=== PATIENT | male | born 1940 ===

== ENCOUNTER → 2024-01-02 | Outpatient (CLI) | payer BC, MEDICARE ==
[2024-01-02 17:43] LABS: INR 1.3 (<1.2); Partial Thromboplastin Time 36.2 sec (22.0-30.0); Prothrombin Time 13.7 sec (10.0-12.5)
[2024-01-03 02:22] LABS: MCHC 31.6 g/dL (32.0-37.0); MCV 88.8 FL (80.0-97.0); Mean Platelet Volume 9.6 FL (9.5-12.2); NRBC Per 100 WBC 0 X 10*3/uL (0.00-0.01); Platelet Count 407 X 10*3/uL (140-440); RBC 4.28 X 10*6/uL (4.40-5.60); RDW 14.2 % (11.5-14.5)
[2024-01-03 02:53] LABS: ALT 11 U/L (10-49); AST 18 U/L (14-35); Albumin 3.9 g/dL (3.8-4.9); Albumin/Globulin Ratio 1.62 Ratio (1.60-3.17); Alkaline Phosphatase 87 U/L (41-126); Blood Urea Nitrogen 22.1 mg/dL (9.0-27.0); Calcium 9.7 mg/dL (8.7-10.3); Carbon Dioxide 24.7 mmol/L (21.6-31.8); Chloride 102 mmol/L (96-109); Globulin 2.4 g/dL (1.6-3.3); Glucose 84 mg/dL (70-110); Potassium 4.4 mmol/L (3.5-5.5); Sodium 139 mmol/L (135-145); Total Bilirubin 0.5 mg/dL (0.3-1.2); Total Protein 6.3 g/dL (6.2-8.2)
== END | disposition home or self-care (01) ==
LOC: LABPAT 15:21
PROVIDERS: ATTEND Orthopaedic Surgery
DX: Z01.812 Encounter for preprocedural laboratory examination (principal); M16.12 Unilateral primary osteoarthritis, left hip; Z22.322 Carrier or suspected carrier of Methicillin resistant Staphylococcus aureus
CPT/HCPCS: 36415; 80053; 85027; 85610; 85730; 86850; 86900; 86901; 87070

== ENCOUNTER 2024-01-10 11:47 | Day surgery (SDC) | payer MEDICARE, BC ==
[2024-01-03 14:46] VITALS: BMI 33.7
[~2024-01-10 11:47] MED LIST: HYDROmorphone 0.5 MG/0.5 ML SYRINGE IVP PRN; TRANEXAMIC 1,000 MG/100ML-NACL 1,000 MG in SALINE 1 100ML.BAG IVPB PRN
[2024-01-10] MEDS ORDERED: HYDROmorphone 0.5 MG/0.5 ML SYRINGE IVP PRN ×2 (12:20)
[2024-01-10] MEDS ORDERED: ONDANSETRON 4 MG/2 ML VIAL IVP PRN (12:20)
[2024-01-10] MEDS ORDERED: MAGNESIUM HYDROXIDE 2,400 MG/30 ML CUP PO PRN (12:20)
[2024-01-10] MEDS ORDERED: NALOXONE 0.4 MG/ML 1 ML VIAL IV PRN (12:20)
[2024-01-10] MEDS ORDERED: HYDROcodone/APAP 7.5-325MG 1 EACH TAB PO PRN (12:22)
[2024-01-10] MEDS: MELOXICAM 7.5 MG TAB PO PRN (12:28)
[2024-01-10] MEDS: GABAPENTIN 300 MG CAP PO PRN (12:28)
[2024-01-10] MEDS: ACETAMINOPHEN TAB 500 MG TAB PO PRN (12:28)
[2024-01-10] MEDS: LACTATED RINGERS 1,000 ML IV SCH (12:45)
[2024-01-10] MEDS: ONDANSETRON 4 MG/2 ML VIAL IVP ONE (12:46)
[2024-01-10] MEDS: DEXAMETHASONE SOD PHOSPHATE 4 MG/ML 1 ML VIAL IV ONE (12:46)
[2024-01-10] MEDS: MIDAZOLAM 2 MG/2 ML VIAL IVP ONE (12:57)
[2024-01-10 13:28] LABS: Glucose,Whole Blood 124 mg/dL (70-110)
--- NOTE | 2024-01-10 13:47 | P.ANPRN ---
Procedure Note - Anesthesia - Nerve Block Performed Left Damien Single Time Out Performed: Yes ([id number]) Date of Procedure: 01/10/24 Procedure Start Time: 13:03 Procedure Stop Time: 13:07 Location of Patient: PreOp Indication: Acute Post-Operative Pain, Requested by Surgeon Specifically requested for management of pain by DrGarrett: Ovi Bustillo Sedation Type: Sedate with meaningful contact maintained Preparation: Sterile Prep Position: Supine Catheter: None Needle Types: Pajunk Needle Gauge: 21 Ultrasound used to visualize needle placement: Yes Ultrasound used to observe medication spread: Yes Injectate: 0.5% Ropivacaine (see comment for volume) (30cc) Blood Aspirated: No Pain Paresthesia on Injection Noted: No Resistance on Injection: Normal Image Stored and Saved: Yes Events: Uneventful and Well Tolerated
[2024-01-10] MEDS ORDERED: ROPIVACAINE 5 MG/ML 30 ML VIAL ONE (13:58)
[2024-01-10] MEDS ORDERED: fentaNYL (PF) 50 MCG/ML 2 ML AMP ONE (13:58)
[2024-01-10] MEDS ORDERED: PROPOFOL 10 MG/ML 20 ML VIAL IV ONE (13:58)
[2024-01-10] MEDS ORDERED: PHENYLEPHRINE 10 MG/ML VIAL ONE (13:58)
[2024-01-10] MEDS ORDERED: MIDAZOLAM 2 MG/2 ML VIAL ONE (13:58)
[2024-01-10] MEDS ORDERED: TRANEXAMIC 1,000 MG/100ML-NACL PREMIX BAG ONE (13:58)
[2024-01-10] MEDS: ceFAZolin 3 GM in SODIUM CHLORIDE 0.9% 100 ML IVPB PRN (14:02)
[2024-01-10] MEDS: ceFAZolin 1,000 MG in SODIUM CHLORIDE 0.9% 1,000 ML IRRIGATION ONE (14:28)
[2024-01-10] MEDS: ROPIVACAINE 5 MG/ML 30 ML VIAL MISCELLANE ONE ×2 (14:35→15:14)
--- NOTE | 2024-01-10 15:19 | P.OP ---
Date of Procedure: 01/10/24 Preoperative Diagnosis: Severe osteoarthritis left hip Postoperative Diagnosis: Severe osteoarthritis left hip Procedure(s) Performed: Left total hip arthroplasty through direct anterior approach Implants: [employer] Polarstem standard size 7 with a collar [employer] R3, 3 hole hemispherical acetabular shell, 60 mm [employer] Reflection 6.5 mm cancellus screw, 20 mm 2 [employer] R3, XLPE 20 acetabular liner [employer] Oxinium femoral head 36 mm, +4 All components were press-fit. The articulation is Oxinium on polyethylene. Anesthesia: spinal Surgeon: Ovi Bustillo Certified Nurse Aide #1: Ailyn Armstrong Estimated Blood Loss (ml): 300 Pathology: none sent Condition: stable Disposition: PACU Indications for Procedure: After failure of conservative treatment we discussed the surgical and nonsurg ical treatment options at length. Patient wishes to proceed with a total hip arthroplasty with a direct anterior approach. Complications specific to this procedure were discussed at length, including but not limited to infection, leg length discrepancy, dislocation, nerve injury, and fracture. Covid-19 was also discussed at length with the patient, and they are aware of the current policies and procedures. The patient was given the option of delaying surgery, but they elect to proceed knowing these risks. Patient is aware of all these complications and informed consent was obtained Operative Findings: The operative findings are consistent with severe osteophyte arthritis of the left hip Description of Procedure: The patient was seen and evaluated in the preoperative area and the consent was reviewed. The operative site was marked with a skin marker. The patient verified the procedure and operative site. A DE block was placed by anesthesia in the preoperative area. The patient was then brought to the operating room and given preoperative antibiotics intravenously. 1 g of Tranexamic acid was also given intravenously. A spinal anesthetic was administered by the anesthesia department. The patient was then placed on the [place] table with the bony prominences well-padded. The hip area was then prepped with a ChloraPrep solution and draped in the usual sterile fashion. A universal timeout was then performed, which confirmed the patient's name, surgical site, ALLERGIES, and procedure being performed on the consent. Next the incision site was located at 1 cm distal and 4 cm lateral to the anterior superior iliac spine. The skin and subcutaneous tissues were sharply incised. Incision was carefully dissected down to the fascia overlying the tensor fascia lu muscle. This fascia was then incised in line with the muscle fibers. Care was taken to stay laterally in order to avoid injuring the lateral femoral cutaneous nerve. Next, using blunt finger dissection, the tensor fascia lu muscle was dissected off its investing fascia. The muscle was then carefully retracted laterally with a cobra retractor over the lateral neck of the femur. Next, the circumflex vessels were identified and cauterized using the Aquamantis device. The anterior hip capsule was then exposed. The capsule was then opened and an inverted T fashion. The retractors were then placed intracapsularly. The retractors were maintained intracapsular throughout the procedure. The proximal femur was then visualized. Fluoroscopic x-rays were then taken in order to evaluate the preoperative leg lengths. A small amount of traction was placed on the leg. The femoral neck was then osteotomized at the appropriate level above the lesser trochanter. A small wedge of bone was then removed from the remaining femoral head. Next, using a corkscrew the femoral head was removed from the acetabulum. On gross visual inspection, the femoral head had complete loss of articular cartilage and multiple periarticular osteophytes. The femoral head was then measured. Attention was then turned to the acetabulum. The acetabulum was exposed and any remaining labrum was excised. Sequential reaming of the acetabulum was performed using fluoroscopic guidance until there was a good bed of bleeding cancellus bone. When the appropriate size was reached, a trial was then placed. The position and fit of the trial was checked with fluoroscopy. The trial was then removed. Then, using fluoroscopic guidance, the final implant was impacted at 20 of anteversion and 40 of abduction, and fully seated in the acetabulum. 2 screws were then placed in the acetabulum. Again fluoroscopy was used to check position of the screws. Next, the liner was then impacted, with a 20 elevated liner located in the anterior superior quadrant. Component locking was confirmed. Attention was then directed to the femur. With the aid of the [place] table, the femur was externally rotated to approximately 130, extended, and adducted under the opposite leg. A side hook was then placed under the proximal femur, and the side hook elevator was used to elevate the proximal femur while releasing the capsule. Retractors were then placed. A capsular release was performed, as well as a release of the conjoined tendon, which afforded excellent visualization of the proximal femur. Next, a box osteotome was used to lateralize the proximal femur. A roller hand was then used to locate the femoral canal. Sequential broaching was then performed with appropriate size which afforded excellent fixation in the proximal femur. A trial was then placed with appropriate head and neck, and the hip was gently reduced with the aid of the [place] table. Fluoroscopy was then used to check position of the components, as well as to evaluate the leg lengths and offset. The leg lengths and offset were measured as closely as possible to ensure stability of the hip. The hip was then gently dislocated and the trials were then removed. Final implants were then impacted and the hip was again reduced. Final fluoroscopic x-rays confirmed that the components were in anatomic position. The leg lengths and offset were measured and were found to coincide with the trial measurements. The hip was also taken through range of motion, and found to be stable. The hip was then copiously irrigated with antibiotic solution with pulsatile lavage. The hip was then irrigated with Irrisept solution. The soft tissues were then injected with a ropivacaine solution. A second dose of 1 g of Tranexamic acid was also given intravenously. The fascia was then closed with 2-0 strata fix suture. The subcutaneous tissue was closed with 3-0 Vicryl. The subcuticular tissue was closed with 3-0 strata fix suture. The skin was then closed with Exofin skin glue. After the glue and dried, and Optifoam silver impregnated dressing was applied. The patient was then transferred to the recovery room in stable condition. The residential real estate assistant ANGEL Booth was required due to the complexity of surgery, and the need for skilled surgical nurse for positioning, draping, exposure, retraction, and closure of the wound.
[2024-01-10 16:07] LABS: Glucose,Whole Blood 134 mg/dL (70-110)
--- NOTE | 2024-01-10 16:11 | XR ---
EXAMINATION TYPE: XR Hip Limited LT DATE OF EXAM: 01/10/2024 COMPARISON: None HISTORY: Left hip replacement TECHNIQUE: AP left hip FINDINGS: There is placement of a left femoral prosthesis with acetabular component. No acute fractur es or dislocations are evident. Postsurgical soft tissue changes are evident. IMPRESSION: 1. No acute fracture post left hip replacement
--- NOTE | 2024-01-10 16:39 | FL ---
EXAMINATION TYPE: FL guidance operating room Intraoperative/procedural fluoroscopic services were pro vided. Total fluoroscopy time is 37 seconds with images to PACS. Please see the operative/procedural note for further details. DAP: 3.67 mGym2
--- NOTE | 2024-01-10 16:41 | XR ---
EXAMINATION TYPE: XR Hip Limited LT DATE OF EXAM: 01/10/2024 Comparison: None Clinical History: 83-year-old male M16.12 LEFT HIP OSTEOARTHRITIS Findings: LT HIP OSTEOARTHRITIS. 37 SECS FL. DAP:3.6777 Gycm2. No images provided. Impression: Intraoperative fluoroscopy as above.
[2024-01-10] MEDS: SODIUM CHLORIDE 0.9% 1,000 ML IV SCH (19:48)
[2024-01-10 20:28] VITALS: RESP 18
[2024-01-10] MEDS: HYDROcodone/APAP 7.5-325MG 1 EACH TAB PO PRN (20:44)
[2024-01-10] MEDS: SENNOSIDES-DOCUSATE SODIUM 1 EACH TAB PO SCH (20:44)
[2024-01-10 20:54] LABS: Glucose,Whole Blood 138 mg/dL (70-110)
[2024-01-10] MEDS: ceFAZolin 3 GM in SODIUM CHLORIDE 0.9% 100 ML IVPB SCH (22:00)
[2024-01-10] MEDS ORDERED: CYCLOBENZAPRINE 10 MG TAB PO PRN (22:20)
[2024-01-10] MEDS ORDERED: MECLIZINE 25 MG TAB PO PRN (22:20)
[2024-01-11] MEDS: HYDROmorphone 0.5 MG/0.5 ML SYRINGE IVP PRN (01:10)
[2024-01-11 05:43] LABS: Glucose,Whole Blood 170 mg/dL (70-110)
[2024-01-11 08:13] VITALS: BP 121/73; PULSE 60; TEMP 97.8
[2024-01-11 08:38] LABS: Basophils # (A) 0.04 X 10*3/uL (0.00-0.10); Basophils % (A) 0.3 %; Eosinophils # (A) 0.01 X 10*3/uL (0.04-0.35); Eosinophils % (A) 0.1 %; HCT 38.3 % (39.6-50.0); HGB 12.3 g/dL (13.0-17.0); Lymphocytes # (A) 1.48 X 10*3/uL (0.90-5.00); Lymphocytes % (A) 12.3 %; MCH 27.7 pg (27.0-32.0); MCHC 32.1 g/dL (32.0-37.0); MCV 86.3 FL (80.0-97.0); Mean Platelet Volume 9.4 FL (9.5-12.2); Monocytes # (A) 1.15 X 10*3/uL (0.20-1.00); Monocytes % (A) 9.6 %; NRBC Per 100 WBC 0 X 10*3/uL (0.00-0.01); Neutrophils % (A) 77.5 %; Platelet Count 365 X 10*3/uL (140-440); RBC 4.44 X 10*6/uL (4.40-5.60); RDW 13.7 % (11.5-14.5); WBC 12.01 X 10*3/uL (4.50-10.00)
[2024-01-11] MEDS: RIVAROXABAN 20 MG TAB PO SCH ×2 (09:42→09:46)
[2024-01-11] MEDS: LISINOPRIL-HCTZ 20-25 MG 1 EACH TAB PO SCH (09:46)
--- NOTE | 2024-01-11 09:46 | P.DS ---
Providers Expected date of discharge: 01/11/24 Attending physician: Ovi Bustillo Consults: 01/10/24 12:20 Consult Physician Routine Consulting Provider: Sachin Montejo Consult Reason/Comments: medical management Do you want consulting provider notified?: Yes Primary care physician: Erica Mcdonald - Discharge Diagnosis(es) (1) Osteoarthritis of left hip Current Visit: Yes Status: Acute (2) S/P total left hip arthroplasty Current Visit: Yes Status: Acute Hospital Course: This is an 83-year-old female with known history of degenerative arthritis of the left hip. The patient presented for evaluation as an outpatient. After discussion and consideration patient elects to proceed with total hip arthroplasty. The patient is seen preoperatively by Dr. Bustillo and medically cleared for surgery by their primary care physician. Patient is admitted to [facility] on 01/10/2024 for total hip arthroplasty. The procedure is performed without complication or sequelae. The patient is doing well postoperatively. Labs and vital signs are stable on day of discharge. On day of discharge patient's hip incision is healing well. There is minimal erythema. There is no drainage noted at this time. There is minimal soft tissue swelling to the hip and thigh. Patient has full foot and ankle motion without difficulty or pain. Calf is soft and nontender to palpation. Neurovascular status to the left lower extremity is intact. Patient is d ischarged home in good condition. Please see med rec for accurate list of home medications. Plan - Discharge Summary Discharge Rx Participant: No New Discharge Prescriptions: New Sennosides [Senokot] 2 tab PO DAILY PRN #60 tablet PRN Reason: Constipation HYDROcodone/APAP 7.5-325MG [[place] 7.5-325] 1 - 2 tab PO Q6H PRN #32 tab PRN Reason: Pain No Action Ibuprofen 800 mg PO BID Lisinopril-Hctz 20-25 mg [Zestoretic 20-25] 1 tab PO BID Glimepiride [Amaryl] 1 mg PO DAILY hydrALAZINE HCL 50 mg PO QAM Rivaroxaban [Xarelto] 20 mg PO DAILY Cholecalciferol (Vitamin D3) [Vitamin D3 (50 Mcg = 2000 Iu)] 50 mcg PO BID Meclizine [Antivert] 25 mg PO TID PRN PRN Reason: Vertigo Cyclobenzaprine [Flexeril] 10 mg PO TID PRN PRN Reason: Pain Simvastatin 10 mg PO DAILY Discharge Medication List Cholecalciferol (Vitamin D3) [Vitamin D3 (50 Mcg = 2000 Iu)] 50 mcg PO BID 01/03/24 [History] Cyclobenzaprine [Flexeril] 10 mg PO TID PRN 01/03/24 [History] Glimepiride [Amaryl] 1 mg PO DAILY 01/03/24 [History] Ibuprofen 800 mg PO BID 01/03/24 [History] Lisinopril-Hctz 20-25 mg [Zestoretic 20-25] 1 tab PO BID 01/03/24 [History] Meclizine [Antivert] 25 mg PO TID PRN 01/03/24 [History] Rivaroxaban [Xarelto] 20 mg PO DAILY 01/03/24 [History] Simvastatin 10 mg PO DAILY 01/03/24 [History] hydrALAZINE HCL 50 mg PO QAM 01/03/24 [History] HYDROcodone/APAP 7.5-325MG [[place] 7.5-325] 1 - 2 tab PO Q6H PRN #32 tab 01/11/24 [Rx] Sennosides [Senokot] 2 tab PO DAILY PRN #60 tablet 01/11/24 [Rx] Follow up Appointment(s)/Referral(s): [facility] [[facility]] - 1-2 Days ([facility] will call you to schedule your in home physical therapy visits.) Ovi Bustillo DO [Doctor of Osteopathic Medicine] - 2 Weeks Activity/Diet/Wound Care/Special Instructions: Weightbearing as tolerated with walker. Leave dressing intact. Dressing may be removed by home care nurse or by patient in 7 days. Then change dressing twice daily until follow up. May shower with initial dressing intact and after removal. If dressing become saturated, please remove. Please resume Xarelto. Recommend use of compression stockings daily until follow up to help prevent swelling and blood clots. May remove at night before sleeping. Please follow-up with [facility] in 2 weeks and call with any questions or concerns, . Discharge Disposition: HOME WITH HOME HEALTH SERVICES
[2024-01-11] MEDS: GLIMEPIRIDE 1 MG TAB PO SCH (09:47)
[2024-01-11] MEDS: hydrALAZINE HCL 50 MG TAB PO SCH (09:47)
[2024-01-11] MEDS: ATORVASTATIN 10 MG TAB PO SCH (09:47)
[2024-01-11 11:38] LABS: Glucose,Whole Blood 150 mg/dL (70-110)
--- NOTE | 2024-01-11 16:18 | P.CONS ---
History of Present Illness - Reason for Consult Consult date: 01/11/24 Medical management Requesting physician: Ovi Bustillo - Chief Complaint Left hip surgery - History of Present Illness This is a pleasant 83-year-old patient who follows with Dr. Sidra Mcdonald. Chronic stable medical conditions include diabetes, hypertension, hyperlipidem ia, history of atrial fibrillation. Has a pacemaker. Patient has undergone left total hip arthroplasty. Pain is controlled. No nausea vomiting. No chest pain or shortness of breath. Did ambulate. Review of systems: GEN.: None EYES: None HEENT: None NECK: None RESPIRATORY: None CARDIOVASCULAR: None GASTROINTESTINAL: None GENITOURINARY: None MUSCULOSKELETAL: Joint pains LYMPHATICS: None HEMATOLOGICAL: None PSYCHIATRY: None NEUROLOGICAL: None Social history: Drinks 2 shots of drink at night. Lives with Lashay. Stopped smoking in 1979. Physical examination: VITAL SIGNS: 97.8, 60, 18, 121/73, 97% room air GENERAL: BMI 33.5, sitting up, comfortable. EYES: Pupils equal. Conjunctiva chrissy l. HEENT: External appearance of nose and ears normal, oral cavity grossly normal. NECK: JVD not raised; masses not palpable. HEART: First and second heart sounds are normal; no edema. LUNGS: Respiratory rate normal; clear to auscultation. ABDOMEN: Soft, nontender, liver spleen not palpable, no masses palpable. PSYCH: Alert and oriented x3; mood and affect chrissy l. MUSCULOSKELETAL:No Clubbing/cyanosis;muscles-grossly intact. OA. Dense dressing over incision site NEUROLOGICAL: Cranial nerves grossly intact; no facial asymmetry, power and sensation grossly intact. LYMPHATICS: No lymph nodes palpable in the axilla and neck INVESTIGATIONS, reviewed in the clinical context: January 11: White count 12 hemoglobin 12.3 platelets 365 January 02: White count 8.1 hemoglobin 12 platelets 407 potassium 4.4 creatinine 1.0 Assessment plan: -Left total hip arthroplasty Patient on Xarelto. For DVT prophylaxis. -Primary osteoarthritis Pain control as needed -Diabetes mellitus type 2 on oral hypoglycemic Amaryl. Follow Accu-Cheks with sliding scale insulin -Essential hypertension Hydralazine. Zestoretic. -Hyperlipidemia Simvastatin -Muscle spasm Flexeril -History of atrial fibrillation Xarelto Discussed with the patient. Thank Dr. Bustillo Past Medical History Past Medical History: Atrial Fibrillation, Cancer, Diabetes Mellitus, Hyperlipidemia, Hypertension, Osteoarthritis (OA) Additional Past Medical History / Comment(s): Vertigo. Hx low rate. Hx skin cancer on back - removed. History of Any Multi-Drug Resistant Organisms: None Reported Past Surgical History: Hernia Repair, Pacemaker Past Anesthesia/Blood Transfusion Reactions: No Reported Reaction Additional Past Anesthesia/Blood Transfusion Reaction / Comm: Vertigo. Type of Cardiac Device: Permanent Pacemaker Device Placement Date:: June 2023 Past Psychological History: No Psychological Hx Reported Smoking Status: Former smoker Past Alcohol Use History: Daily Additional Past Alcohol Use History / Comment(s): Quit smoking in 1979. Has "2 shots daily". Past Drug Use History: None Reported - Past Family History Mother Family Medical History: No Reported History Medications and Allergies Home Medications Medication Instructions Recorded Confirmed Type Cholecalciferol (Vitamin D3) 50 mcg PO BID 01/03/24 01/10/24 History [Vitamin D3 (50 Mcg = 2000 Iu)] Cyclobenzaprine [Flexeril] 10 mg PO TID PRN 01/03/24 01/10/24 History Glimepiride [Amaryl] 1 mg PO DAILY 01/03/24 01/10/24 History Lisinopril-Hctz 20-25 mg 1 tab PO BID 01/03/24 01/10/24 History [Zestoretic 20-25] Meclizine [Antivert] 25 mg PO TID PRN 01/03/24 01/10/24 History Rivaroxaban [Xarelto] 20 mg PO DAILY 01/03/24 01/10/24 History Simvastatin 10 mg PO DAILY 01/03/24 01/10/24 History hydrALAZINE HCL 50 mg PO QAM 01/03/24 01/10/24 History HYDROcodone/APAP 7.5-325MG [[place] 1 - 2 tab PO Q6H PRN #32 tab 01/11/24 Rx 7.5-325] Sennosides [Senokot] 2 tab PO DAILY PRN #60 tablet 01/11/24 Rx Allergies Allergy/AdvReac Type Severity Reaction Status Date / Time No Known Allergies Allergy Verified 01/10/24 12:18 Physical Exam Vitals: Vital Signs Temp Pulse Pulse Resp BP Pulse Ox 01/11/24 06:55 97.8 F 60 18 121/73 97 01/11/24 00:49 97.7 F 63 18 130/75 97 01/10/24 19:52 97.5 F L 60 18 155/95 98 01/10/24 16:54 60 16 123/83 100 01/10/24 16:39 60 16 126/73 100 01/10/24 16:24 60 16 113/689 100 01/10/24 16:09 59 L 16 111/70 100 01/10/24 15:54 60 16 94/62 96 01/10/24 15:39 96.9 F L 60 12 93/59 100 01/10/24 13:13 63 14 127/70 100 01/10/24 12:38 97.2 F L 69 14 164/79 93 L Intake and Output 01/10/24 01/11/24 01/11/24 22:59 06:59 14:59 Intake Total 0 Output Total 300 600 Balance -300 -600 Intake: IV 0 Output: Urine 600 Estimated Blood Loss 300 Other: Weight 121.6 kg Results CBC & Chem 7: 01/11/24 05:42 Labs: Abnormal Lab Results - Last 24 Hours (Table) 01/10/24 01/10/24 01/10/24 Range/Units 13:27 16:06 20:51 WBC (4.50-10.00) X 10*3/uL Hgb (13.0-17.0) g/dL Hct (39.6-50.0) % MPV (9.5-12.2) FL Neutrophils # (1.80-7.70) X 10*3/uL Monocytes # (0.20-1.00) X 10*3/uL Eosinophils # (0.04-0.35) X 10*3/uL POC Glucose (mg/dL) 124 H 134 H 138 H (70-110) mg/dL 01/11/24 01/11/24 Range/Units 05:39 05:42 WBC 12.01 H (4.50-10.00) X 10*3/uL Hgb 12.3 L (13.0-17.0) g/dL Hct 38.3 L (39.6-50.0) % MPV 9.4 L (9.5-12.2) FL Neutrophils # 9.30 H (1.80-7.70) X 10*3/uL Monocytes # 1.15 H (0.20-1.00) X 10*3/uL Eosinophils # 0.01 L (0.04-0.35) X 10*3/uL POC Glucose (mg/dL) 170 H (70-110) mg/dL
== END 2024-01-11 13:10 | disposition home health service (06) ==
LOC: OR 11:47 → 4SSUR 15:32 → OR 01-11 13:10
PROVIDERS: ATTEND Orthopaedic Surgery
DX: M16.12 Unilateral primary osteoarthritis, left hip (principal); G89.18 Other acute postprocedural pain; I10 Essential (primary) hypertension; E78.5 Hyperlipidemia, unspecified; I48.91 Unspecified atrial fibrillation; E11.9 Type 2 diabetes mellitus without complications; F10.90 Alcohol use, unspecified, uncomplicated; Z96.642 Presence of left artificial hip joint; Z85.828 Personal history of other malignant neoplasm of skin; Z79.01 Long term (current) use of anticoagulants; Z87.891 Personal history of nicotine dependence
CPT/HCPCS: 97162; 97166; 64447; 85025; 73501; 27130; C1776; J2250; J1100; J0690 ×3; J2405; J2795; J1170